=== PATIENT | male | born 2000 | race Hispanic/Latino ===

== ENCOUNTER 2025-07-10 09:41 | Emergency (ER) | payer SELFPAY ==
[2025-07-10 10:27] VITALS: BP 129/86; PULSE 87; RESP 16; TEMP 36.7; O2SAT 98
--- OUTSIDE RECORDS SUMMARY | 2025-07-10 11:36 | XMS_ITS | Continuity of Care Document ---
Author Organization 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 [address] [facility] [address] [facility] [address], [place], [address], [place]. tel:[phone] [facility], [address] [place] [address] [address], [place], [place], [id number], tel:[phone] [facility] [place] No Information 9-200 6 Goldsmith OD Jose Angel. [address] [facility] [address] [facility] [address], [place], [address], [place]. tel:[phone] Family History Family Member Type Diagnosis Age At Onset No Information Payers Payer name Insurance type Covered alliance party ID Authoriza tion(s) Medicaid [facility] [id number] Social History Type Description Quantity Date Captured Comments Sex Male Smoking Status No Information Chief Complaint And Reason For Visit No Information Reason For Referral Reason For Referral No Information History Of Present Illness Encounter Date Complaint History Of Prese nt Illness No Information Functional Status Date Functional Assessmen t No Information Instructions Date Instruction Additional Infor mation No Information Assessments Type Assessment Date No Information Patient Care Teams Name Effective Dates (start - stop) Status Members No Information
--- OUTSIDE RECORDS SUMMARY | 2025-07-10 11:36 | XMS_ITS | Clinical Summary ---
Author Organization [facility] Address [address] [place] [address] Care Team Providers Care Datastage Developer Name Role Phone Unavailable Primary Care Provider Unavailabl e Source Comments [facility],non-owned Affiliates and Associated Physician Practices is amultiple site organization consisting of ambulatory clinics and hospital sitesin [place], [place], [place] and [place]. This disclosure is being madepursuant to the Care Everywhere program and may not contain all information available regarding this patient. Last updated 18.[facility] Allergies Active Allergy Reactions Criticality Noted Date Comments Food Swelling High 11/17/2011 Bread and butter pickles Medications * Be aware that medications may not be up to date on this document. Alwaysverify current medications with the patient. methylphenidate CR 36 MG tablet TK 1 T PO QAM 0 01/26/2017 Active sertraline (ZOLOFT) 100 MG tablet TK 1 T PO QD 0 01/26/2017 Active Active Problems Problem Noted Date Diagnosed Date Pneumomediastinum 02/27/2017 Assessment & Plan (04/18/2017 4:08 PM CDT): Patient seems to have resolved from previous symptoms. I have suggested that he may resume full activity with regards to athletics and band. Warning signs for future pneumomediastinum reviewed since there can be about a 10% recurrence rate. I have advised against SCUBA in his future and family agreed with that recommendation. Will follow PRN. Assessment & Plan (02/27/2017 2:37 AM CDT): Patient with multiple risk factors including forceful exhalation, thin male. Uncertain of any additional asthma history though this seems less likely. Will assess further for cardiac manifestations of various connective tissue diseases today. Lengthy discussion with family due to the continued nature of pneumomediastinum about the need to refrain from woodwind instruments and track for the near future. Will continue to reassess with imaging and clinical updates to determine safe return to various activities. Purposeful non-suicidal drug ingestion 6 Assessment & Plan (08/03/2016 11:37 AM CDT): Assessment: 15 yo old with recent stressors and new diagnosis of depression presents after taking a large quantity of pills. Currently hemodynamically stable and mental status at baseline. Revealed to bedside nurse that he has concerns for interactions at home. May be more depressed than he initially stated. 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 Denies SI/HI. Affect is good on exam. Effects of zoloft overdose can include hyperthermia, arrhythmias, seizures. Monitoring for zoloft should include neuro checks and EKG monitoring. Currently hemodynamically stable and mental status at baseline. Revealed to bedside nurse that he has concerns for interactions at home. May be more depressed than he initially stated. 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 Denies SI/HI. Affect is good on exam. Effects of zoloft overdose can include hyperthermia, arrhythmias, seizures. Monitoring for zoloft should include neuro checks and EKG monitoring. Currently hemodynamically stable and mental status at baseline. 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 at this time - Repeat EKG at 0900 - Central intake to evaluate when medically clear Closed nondisplaced fracture of fifth metatarsal bone of left foot 06/21/2013 Scar condition and fibrosis of skin 04/06/2011 Overview (04/06/2011): On nose Family History Medical History Relation Name Comments Depression Other Relation Name Status Comments Other Social History Tobacco Use Types Packs/Day Years Used Date Smoking Tobacco: Never Smokeless Tobacco: Never Alcohol Use Standard Drinks/Week Comments No 0 (1 standard drink = 0.6 oz pur e alcohol) Sex and Gender Information Value Date Recorded Sex Assigned at Not on file Legal 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 Gender Identity Not on file Sexual Orientation Not on file Last Filed Vital Signs Vital Sign Reading Time Taken Comments Blood Pressure 132/70 10/30/2017 4:10 PM DENTIST ATTENDANT Pulse 64 10/30/2017 4:10 PM DENTIST ATTENDANT Temperature 36.9 C (98.4 F) 10/30/2017 4:10 PM DENTIST ATTENDANT Respiratory Rate 20 10/30/2017 4:10 PM DENTIST ATTENDANT Oxygen Saturation 99% 02/22/2017 2:17 PM CDT Inhaled Oxygen Concentration - - Weight 85.4 kg (188 lb 4.4 oz) 01/10/2018 10:31 AM DENTIST ATTENDANT Height 176.2 cm (5' 9.37) 01/10/2018 10:[address] Body Mass Index 27.51 01/10/2018 10:31 AM DENTIST ATTENDANT Plan of Treatment Health Maintenance Due Date Last Done Comments HIV SCREENING 2014 HPV VACCINE (1 - Male 3-dose series) 2014 HEPATITIS C SCREENING 09/28/2017 DTAP/TDAP/TD VACCINES (1 - Tdap) 2018 HEPATITIS B VACCINE (1 of 3 - 19+ 3-dose series) 2018 COVID-19 VACCINE (1 - 2023-2 5 season) 2024 DEPRESSION SCREENING 11/27/2024 INFLUENZA VACCINE (#1) 2025 ZOSTER VACCINE (1 of 2) 2049 HIB VACCINE Aged Out No longer eligi ble based on patient's age to complete this topic MENINGOCOCCAL (Group B) VACC INE SHARED DECISION-MAKING Aged Out No longer eligibl e based on patient's age to complete this topic MENINGOCOCCAL GROUPS A/C/Y/W VACCINE Aged Out No longer eligible b ased on patient's age to complete this topic PNEUMOCOCCAL VACCINE Aged Out No long er eligible based on patient's age to complete this topic Insurance ANTHEM ANTHEM ANTHEM ANTHEM ANTHEM AN[facility] Address: [facility] [id number] [place] [address]
--- NOTE | 2025-07-10 12:45 | ED.GENADULT ---
HPI - General Adult General Chief complaint: Skin/Abscess/Foreign Body Stated complaint: perianal abscess Time Seen by Provider: 07/10/25 10:45 History of Present Illness HPI narrative: This is a 24-year-old male history of recurrent pilonidal cyst presenting with increased pain. Patient says that he has had a chronic abscess that fluctuates in intensity. It typically drains on its own although over last several days is being and Crestor worse and has not ruptured. He does not have any systemic signs such as fevers chills nausea vomiting or diarrhea. He has never seen a surgeon. Related Data Allergies Allergy/AdvReac Type Severity Reaction Status Date / Time No Known Allergies Allergy Verified 07/10/25 10:30 Exam Narrative: APPEARANCE: No apparent distress. Head: atraumatic. EYES: EOMI, NOSE: Atraumatic NECK: Trachea midline RESPIRATORY: No increased rate of breathing CARDIOVASCULAR: RRR, ABDOMINAL: Non-distended MUSCULOSKELETAl: No obvious deformities NEURO: Alert. Moving 4/4 extremities SKIN:: Fluctuant mass at the superior aspect of the gluteal cleft. Old scars. PSYCHIATRIC: Normal affect Course Vital Signs Vital signs: Vital Signs Temperature 98.1 F 07/10/25 10:27 Pulse Rate 87 07/10/25 10:27 Respiratory Rate 16 07/10/25 10:27 Blood Pressure 129/86 07/10/25 10:27 Pulse Oximetry 98 07/10/25 10:27 Temperature 98.1 F 07/10/25 10:27 Pulse Rate 87 07/10/25 10:27 Respiratory Rate 16 07/10/25 10:27 Blood Pressure 129/86 07/10/25 10:27 Pulse Oximetry 98 07/10/25 10:27 Procedures Abscess I/D other: Date of Incision: 07/10/25 Local Anesthetic: bupivacaine 0.25% Amount of anesthesia used (mL): 15 Technique: incised with #11 blade Amount of fluid expressed (mL): 15 Irrigation: Yes Packing used?: iodoform I&D Results: Pus and Blood Complications: pain Medical Decision Making MDM Narrative Medical decision making narrative: -Course: 24-year-old male presenting with pilonidal cyst. It was incised and drained. Patient will be given general surgery follow-up. Discharged on Bactrim with pain control. -DDX includes but is not limited to: Pilonidal cyst, cellulitis Vital Signs Vital Signs: Vital Signs Temperature 98.1 F 07/10/25 10:27 Pulse Rate 87 07/10/25 10:27 Respiratory Rate 16 07/10/25 10:27 Blood Pressure 129/86 07/10/25 10:27 Pulse Oximetry 98 07/10/25 10:27 Temperature 98.1 F 07/10/25 10:27 Pulse Rate 87 07/10/25 10:27 Respiratory Rate 16 07/10/25 10:27 Blood Pressure 129/86 07/10/25 10:27 Pulse Oximetry 98 07/10/25 10:27 Discharge Plan Discharge Clinical Impression: Pilonidal abscess Patient Disposition: Home Condition: Stable Instructions: Antibiotic Form, Pilonidal Cyst (ED), Abscess (ED) Additional Instructions: You were seen in the emergency department for a pilonidal abscess. Please remove the iodoform packing in 24-48 hours. Please call the general surgery clinic as soon as you leave the ED to arrange close follow-up for early next week. If you develop worsening pain fevers or failure condition is declining please return to ED for re-evaluation. Patient Language: Sinhala Prescriptions: New ibuprofen 800 mg tablet 800 mg PO TID PRN (Reason: pain) 7 Days Qty: 21 0RF acetaminophen 500 mg tablet 1,000 mg PO TID PRN (Reason: diana) 7 Days Qty: 42 0RF sulfamethoxazole-trimethoprim 800-160 mg tablet 1 tablet PO Q12H Qty: 14 0RF Follow-up/Referrals: Benigno Montiel MD [Physician] - 1 Day (recurrent pilonidal abscess ) UNKNOWN,DOCTOR [Primary Care Provider] -
[2025-07-10] MEDS: HYDROcodone/acetaminophen (*CRX) 5-325 MG TABLET 1 TAB PO (13:23)
== END 2025-07-10 13:49 | disposition home or self-care (01) ==
PROVIDERS: Emergency Provider Emergency Medicine
DX: L05.01 Pilonidal cyst with abscess (principal)
CPT/HCPCS: 10080; 99283; A9270